=== PATIENT | female | born 1985 | race Caucasian/White ===

== ENCOUNTER 2021-10-22 21:50 | Emergency (ER) | payer OTHER ==
[2021-10-22] MEDS ORDERED: Ibuprofen 800 MG TAB ONE (22:29)
[2021-10-22] MEDS ORDERED: Bacitracin 1 PK ONE (22:29)
[2021-10-22] MEDS ORDERED: Cephalexin 250 MG CAP ONE (22:29)
== END 2021-10-22 22:41 | disposition home or self-care (01) ==
LOC: BURERS 21:50
DX: S01.03XA Puncture wound without foreign body of scalp, initial encounter (principal); X99.8XXA Assault by other sharp object, initial encounter
CPT/HCPCS: 99283